=== PATIENT | male | born 1955 | race Caucasian/White ===

== ENCOUNTER 2021-09-25 21:41 | Emergency (ER) | payer MEDICARE, OTHER ==
[~2021-09-25] VITALS: Ht 177.8 cm; Wt 104.3 kg
[~2021-09-25 21:41] MED LIST: FLEXERIL10 MG PO; FOSINOPRIL SODI40 MG PO; HYDROCHLOROTH12.5 MG PO; MOBIC15 MG PO; PANTOPRAZOLE SO40 MG PO; SIMVASTATIN20 MG PO; TOPROL XL50 MG PO
[2021-09-25] MEDS ORDERED: TRAMADOL HCL 50 MG TAB PO ONE (22:00)
== END 2021-09-25 22:54 | disposition home or self-care (01) ==
LOC: ER 21:46
DX: M25.511 Pain in right shoulder (principal); S42.291D Other displaced fracture of upper end of right humerus, subsequent encounter for fracture with routine healing; I10 Essential (primary) hypertension; E11.9 Type 2 diabetes mellitus without complications; E78.5 Hyperlipidemia, unspecified
CPT/HCPCS: 99283

== ENCOUNTER 2021-11-02 01:22 | Emergency (ER) | payer MEDICARE ==
[~2021-11-02] VITALS: Ht 177.8 cm; Wt 104.3 kg
[2021-11-02] MEDS ORDERED: HYDROCODONE/APAP 7.5MG-325MG 1 EA TAB PO ONE (03:00)
[2021-11-02] MEDS ORDERED: HYDROCODONE/APAP 7.5MG-325MG 1 EA TAB ONE (03:09)
[2021-11-02 03:18] VITALS: BP 187/94
== END 2021-11-02 03:05 | disposition home or self-care (01) ==
LOC: ER 01:25
DX: L03.115 Cellulitis of right lower limb (principal); E11.65 Type 2 diabetes mellitus with hyperglycemia; I10 Essential (primary) hypertension; E78.5 Hyperlipidemia, unspecified; F17.210 Nicotine dependence, cigarettes, uncomplicated
CPT/HCPCS: 36415; 82948; 93971; 99284

== ENCOUNTER 2022-05-08 14:03 | Observation (INO) | payer MEDICARE ==
[~2022-05-08] VITALS: Ht 177.8 cm; Wt 104.3 kg
[2022-05-08] MEDS ORDERED: Vancomycin IV 2 GM in SODIUM CHLORIDE 0.9% 500ML 500 ML IV ONE (16:00)
[2022-05-08 16:13] LABS: HEMATOCRIT 41.5 % (38.2-49.6); HEMOGLOBIN 13.1 g/dL (14.0-18.0); MEAN CORPUSCULAR VOLUME 88.5 fL (81-99); RED BLOOD COUNT 4.69 x10e6/uL (4.3-5.7)
[2022-05-08 16:14] LABS: BASOPHILS % 0.3 % (0.0-1.0); EOSINOPHILS # (AUTO) 0.2 (0.0-0.4); EOSINOPHILS % 2.6 % (0.0-6.0); LYMPHOCYTES # (AUTO) 1.4 (1.0-3.2); LYMPHOCYTES % 21.9 % (18.0-39.1); MEAN CORPUSCULAR HEMOGLOBIN 27.9 pg (28-32); MEAN CORPUSCULAR HGB CONC 31.6 g/dL (31-35); MONOCYTES # (AUTO) 0.8 (0.2-0.8); MONOCYTES % 11.6 % (4.4-11.3); NEUTROPHILS # (AUTO) 4.1 (2.1-6.9); NEUTROPHILS % 63.3 % (38.7-80.0); PLATELET COUNT 245 x10e3/uL (140-360); RED CELL DISTRIBUTION WIDTH 12.8 % (11.7-14.4)
[2022-05-08 16:31] LABS: ALBUMIN 3.4 g/dL (3.5-5.0); ALBUMIN/GLOBULIN RATIO 0.9 (0.8-2.0); CALCIUM 9.5 mg/dL (8.4-10.2); CREATININE, SERUM 0.76 mg/dL (0.72-1.25)
[2022-05-08] MEDS ORDERED: SODIUM CHLORIDE FLUSH 10 ML SYR INJ PRN (17:00)
[2022-05-08] MEDS ORDERED: ONDANSETRON HCL INJ 2MG/ML 2ML 2 MG/ML VIAL IV PRN ×2 (17:00→21:00)
[2022-05-08] MEDS ORDERED: Vancomycin IV 1 GM VIAL ONE (19:10)
[2022-05-08] MEDS ORDERED: SODIUM CHLORIDE 0.9% 500ML 500 ML ONE (19:10)
[2022-05-08] MEDS ORDERED: ACETAMINOPHEN 325 MG TAB PO PRN (21:00)
[2022-05-08] MEDS ORDERED: DEXTROSE 50% SYRINGE 50 ML IV PRN (21:00)
[2022-05-08] MEDS: FUROSEMIDE INJ 10 MG/ML 4 ML VIAL IV SCH (21:34)
[2022-05-08] MEDS: CYCLOBENZAPRINE HCL 10 MG TAB PO SCH (21:35)
[2022-05-08] MEDS: INSULIN LISPRO 100 UNIT/1 ML 3ML VIAL SQ SCH (21:36)
[2022-05-08] MEDS: DOXYCYCLINE HYCLATE TABLET 100 MG TAB PO SCH (21:36)
[2022-05-08] MEDS: METOPROLOL SUCCINATE 50 MG TAB XL PO SCH (23:12)
[2022-05-09] VITALS (7 sets, daily range): BP systolic 149–204; BP diastolic 74–87
[2022-05-09 06:10] LABS: BASOPHILS % 0.5 % (0.0-1.0); EOSINOPHILS # (AUTO) 0.1 (0.0-0.4); EOSINOPHILS % 1.6 % (0.0-6.0); HEMATOCRIT 39.6 % (38.2-49.6); HEMOGLOBIN 12.9 g/dL (14.0-18.0); LYMPHOCYTES # (AUTO) 1.2 (1.0-3.2); LYMPHOCYTES % 13.6 % (18.0-39.1); MEAN CORPUSCULAR HEMOGLOBIN 28.7 pg (28-32); MEAN CORPUSCULAR HGB CONC 32.6 g/dL (31-35); MEAN CORPUSCULAR VOLUME 88.2 fL (81-99); MONOCYTES % 11.3 % (4.4-11.3); NEUTROPHILS # (AUTO) 6.4 (2.1-6.9); NEUTROPHILS % 72.5 % (38.7-80.0); PLATELET COUNT 194 x10e3/uL (140-360); RED BLOOD COUNT 4.49 x10e6/uL (4.3-5.7)
[2022-05-09] MEDS ORDERED: SODIUM CHLORIDE 0.9% 100 ML ONE (06:16)
[2022-05-09 06:42] LABS: ALBUMIN 3.3 g/dL (3.5-5.0); ALBUMIN/GLOBULIN RATIO 0.9 (0.8-2.0); ANION GAP 15.2 mmol/L (8-16); CALCIUM 9.1 mg/dL (8.4-10.2); CREATININE, SERUM 0.73 mg/dL (0.72-1.25); POTASSIUM 3.2 mmol/L (3.5-5.1)
[2022-05-09] MEDS: INSULIN LISPRO 100 UNIT/1 ML 3ML VIAL SQ SCH ×2 (07:30→11:30)
[2022-05-09] MEDS ORDERED: PANTOPRAZOLE SOD 40 MG TABEC PO SCH (07:30)
[2022-05-09] MEDS: FUROSEMIDE INJ 10 MG/ML 4 ML VIAL IV SCH (08:51)
[2022-05-09] MEDS: METOPROLOL SUCCINATE 50 MG TAB XL PO SCH ×2 (08:52→14:56)
[2022-05-09] MEDS: DOXYCYCLINE HYCLATE TABLET 100 MG TAB PO SCH ×2 (08:52→14:56)
[2022-05-09] MEDS: CYCLOBENZAPRINE HCL 10 MG TAB PO SCH ×2 (08:53→14:57)
[2022-05-09] MEDS ORDERED: SIMVASTATIN 20 MG TAB PO SCH (09:00)
[2022-05-09] MEDS ORDERED: HYDRALAZINE HCL 20 MG/ML VIAL IV PRN (09:30)
[2022-05-09] MEDS ORDERED: LABETALOL HCL 5 MG/ML 20ML VIAL IV PRN (09:30)
[2022-05-09 09:46] LABS: ANION GAP 15.6 mmol/L (8-16); CALCIUM 9.4 mg/dL (8.4-10.2); CREATININE, SERUM 0.84 mg/dL (0.72-1.25); POTASSIUM 3.6 mmol/L (3.5-5.1)
[2022-05-09] MEDS ORDERED: POTASSIUM CHLORIDE 20 MEQ TAB CR PO ONE (10:15)
[2022-05-09] MEDS ORDERED: NIFEDIPINE CR 30 MG TAB PO ONE (10:45)
[2022-05-09] MEDS ORDERED: FOSINOPRIL SODIUM 10 MG TAB PO SCH (11:00)
[2022-05-09] MEDS: POTASSIUM CHLORIDE 10MEQ EA PO SCH ×3 (11:33→14:56)
[2022-05-09] MEDS ORDERED: ONDANSETRON HCL 4 MG ORAL DISINTEGRATING TAB PO PRN (12:30)
[2022-05-10] MEDS ORDERED: FUROSEMIDE INJ 10 MG/ML 4 ML VIAL IV SCH (09:00)
[2022-05-10] MEDS ORDERED: NIFEDIPINE CR 30 MG TAB PO SCH (09:00)
== END 2022-05-09 18:27 | disposition home or self-care (01) ==
LOC: ER 14:11 → ERHOLD 16:52 → MED/SURG2 23:26
PROVIDERS: ADMIT Internal Medicine; ATTEND Internal Medicine
DX: I89.0 Lymphedema, not elsewhere classified (principal); E11.620 Type 2 diabetes mellitus with diabetic dermatitis; L03.116 Cellulitis of left lower limb; L03.115 Cellulitis of right lower limb; I87.2 Venous insufficiency (chronic) (peripheral); I10 Essential (primary) hypertension; Z79.4 Long term (current) use of insulin; Z20.822 Contact with and (suspected) exposure to COVID-19; I45.10 Unspecified right bundle-branch block
CPT/HCPCS: 36415 ×2; 71045; 71250; 80048; 80053 ×2; 82948 ×2; 83036; 83880; 84443; 84484; 85025 ×2; 93005 ×2; 93306; 93925; 93970; 99252; 99284; G0378 ×2; J1940 ×2; J2543 ×2; J3370; J7040; J7050; S0164; U0002